=== PATIENT | female | born 1995 | race Caucasian/White ===

== ENCOUNTER 2023-04-01 16:41 | Emergency (ER) | payer BC, MEDICAID, SELFPAY ==
[2023-04-01 16:53] VITALS: BP 152/95; PULSE 96; RESP 18; TEMP 36.6; O2SAT 98; BMI 45.3
[2023-04-01 17:24] LABS: Basophils % 0.6 %; Eosinophils # 0.1 10^3/uL (0.0-0.8); Eosinophils % 1.8 %; Hematocrit 41.5 % (37.0-47.0); Hemoglobin 13.5 g/dL (11.5-15.3); Lymphocytes % 27.8 %; Mean Corpuscular HGB Conc 32.5 g/dL (30.0-36.0); Mean Corpuscular Hemoglobin 27.1 pg (28.0-34.0); Mean Corpuscular Volume 83.3 fl (81-99); Mean Platelet Volume 11.1 fL (7.4-10.4); Monocytes # 0.5 10^3/uL (0.2-0.9); Monocytes % 6.5 %; Neutrophils # 4.45 10^3/uL (1.8-7.7); Neutrophils % 62.9 %; Nucleated Red Blood Cells % 0 %; Platelet Count 253 10^3/cmm (130-400); Red Blood Count 4.98 10^6/uL (4.1-5.3); White Blood Count 7.1 10^3/uL (4.0-10.0)
--- NOTE | 2023-04-01 17:37 | CTR_ITS ---
PROCEDURE INFORMATION: Exam: CT Abdomen And Pelvis With Contrast Exam date and time: 04/01/2023 6:54 PM Age: 27 years old Clinical indication: Nausea and vomiting; Abdominal pain; Localized; Right; Prior surgery; Surgery date: 6+ months; Surgery type: Csection; Patient HX: RT sided abd pain with n/v. ; Additional info: Abd pain, n/v TECHNIQUE: Imaging protocol: Computed tomography of the abdomen and pelvis with contrast. Radiation optimization: All CT scans at this facility use at least one of these dose optimization techniques: automated exposure control; mA and/or kV adjustment per patient size (includes targeted exams where dose is matched to clinical indication); or iterative reconstruction. Contrast material: OMNI 350; Contrast volume: 100 ml; Contrast route: INTRAVENOUS (IV); REPORTING DATA: Count of CT and Cardiac NM exams in prior 12 months: This patient has received 0 known CTs and 0 known cardiac nuclear medicine studies in the 12 months prior to the current study. COMPARISON: No relevant prior studies available. RADIATION DOSE METRICS: Total DLP (mGy-cm): 1085.07 FINDINGS: Liver: Normal. No mass. Gallbladder and bile ducts: Normal. No calcified stones. No ductal dilation. Pancreas: Normal. No ductal dilation. Spleen: Borderline splenomegaly. Adrenal glands: Normal. No mass. Kidneys and ureters: Normal. No hydronephrosis. Stomach and bowel: Unremarkable. No obstruction. No mucosal thickening. Appendix: The appendix is visualized and is normal. Intraperitoneal space: Unremarkable. No free air. No significant fluid collection. Vasculature: Unremarkable. No abdominal aortic aneurysm. Lymph nodes: Unremarkable. No enlarged lymph nodes. Urinary bladder: Unremarkable as visualized. Reproductive: Unremarkable as visualized. Bones/joints: Unremarkable. No acute fracture. Soft tissues: Small fat containing umbilical hernia. CT/CT abdomen pelvis w con* [id number] IMPRESSION: No acute findings.
--- NOTE | 2023-04-01 17:38 | W.ED.ABDPA2 ---
HPI - Abdominal Pain General: Chief Complaint: Abdominal Pain Stated Complaint: abd pain Time Seen by Provider: 04/01/23 17:07 History of Present Illness: Presents to the ER from the clinic in [place] for right-sided abdominal pain. They sent her over here for concerns appendicitis. Pain is dull and achy in nature and sensitive to palpation. Patient also has some nausea vomiting. Patient has never had any pain like this before. Her only abdominal surgery is a multiple years ago. Patient still has her appendix and gallbladder. Review of Systems General: Reports: 10 or more systems reviewed and unremarkable except in HPI and below [facility] Female Reproductive History: Spontaneous abortions: No Physical Exam Const: COMMON NORMALS: no acute distress, average body habitus, patient oriented x3, no limitations, healthy appearing, alert and well nourished HENMT: COMMON NORMALS: normocephalic, atraumatic, hearing grossly normal bilaterally, external ears normal, Normal external nose present and moist oral mucous membranes HEAD & SCALP: normocephalic and atraumatic NOSE: Normal external nose present EXTERNAL EAR: Yes external ears normal Eye: COMMON NORMALS: Equal, round and reactive pupils present, EOMs intact bilaterally, conjunctivae normal and no scleral icterus CONJUNCTIVA: Yes conjunctivae normal PUPIL: Yes Equal, round and reactive pupils present Neck/C-Spine: COMMON NORMALS: full ROM, no lymphadenopathy, supple, no meningeal signs, no JVD and Thyroid normal THYROID: Thyroid normal Lymph: LYMPHATIC: no lymphadenopathy noted Chest: COMMONS NORMALS: normal inspection of the chest and normal palpation of entire chest wall Resp: COMMON NORMALS: normal respiratory effort, No retractions, No use of accessory muscles and clear to auscultation bilaterally AUSCULTATION: clear to auscultation bilaterally Cardio: COMMON NORMALS: no JVD, regular rate, regular rhythm, S1 normal heart sound present, S2 normal heart sound present, No gallops present (Cardio), No murmurs present (Cardio) and No rub (Cardio) RATE: regular rate RHYTHM: regular rhythm HEART SOUNDS: S1 normal heart sound present and S2 normal heart sound present GI: COMMON NORMALS: Normal to inspection, nondistended, normoactive bowel sounds present, Soft to palpation, No hepatosplenomegaly present and no masses; negative for non-tender (Tender to palpate over epigastric/umbilical area.) PALPATION: Yes Soft to palpation and Yes No hepatosplenomegaly present : COMMON NORMALS: Yes no CVA tenderness BLADDER/KIDNEY EXAM: Yes no CVA tenderness Back/Pelvis: COMMON NORMALS: no CVA tenderness Neuro: COMMON NORMALS: patient oriented x3 SENSORIUM/ORIENTATION: Yes alert MENINGEAL SIGNS: Yes no meningeal signs Course Vital Signs: Vital signs: Vital Signs Temperature 97.9 F 04/01/23 16:53 Pulse Rate 96 04/01/23 16:53 Respiratory Rate 18 04/01/23 16:53 Blood Pressure 152/95 04/01/23 16:53 Pulse Oximetry 98 04/01/23 16:53 MDM - Abdominal Pain Medical Decision Making Patient presented to the ER with complaints of abdominal pain. She was seen at the [facility] earlier today and was sent over here to rule out appendicitis. Patient had lab work done which was unremarkable as well as a abdomen pelvis CT with contrast that showed no acute findings. Patient will be discharged with a diagnosis of abdominal pain and instructed to follow-up with her family practice physician. Differential Diagnosis Likely abdominal pain; Unlikely acute appendicitis, calculus of kidney, constipation, diverticulitis, endometriosis, gastroenteritis, pancreatitis or small bowel obstruction Medical Records I reviewed the patient's medical records. Lab Data I reviewed the patient's lab results. 04/01/23 17:18 04/01/23 17:18 Labs/Radiology: Radiology Impressions Abdomen/Pelvis CT 04/01/23 17:37 IMPRESSION: No acute findings. Laboratory Results WBC 7.1 10^3/uL (4.0-10.0) 04/01/23 17:18 RBC 4.98 10^6/uL (4.1-5.3) 04/01/23 17:18 Hgb 13.5 g/dL (11.5-15.3) 04/01/23 17:18 Hct 41.5 % (37.0-47.0) 04/01/23 17:18 MCV 83.3 fl (81-99) 04/01/23 17:18 MCH 27.1 pg (28.0-34.0) L 04/01/23 17:18 MCHC 32.5 g/dL (30.0-36.0) 04/01/23 17:18 RDW 14.0 % (12.1-15.1) 04/01/23 17:18 Plt Count 253 10^3/cmm (130-400) 04/01/23 17:18 MPV 11.1 fL (7.4-10.4) H 04/01/23 17:18 Neut % (Auto) 62.9 % 04/01/23 17:18 Lymph % (Auto) 27.8 % 04/01/23 17:18 [place] % (Auto) 6.5 % 04/01/23 17:18 Eos % (Auto) 1.8 % 04/01/23 17:18 Baso % (Auto) 0.6 % 04/01/23 17:18 Neut # (Auto) 4.45 10^3/uL (1.8-7.7) 04/01/23 17:18 Lymph # (Auto) 2.0 10^3/uL (0.8-4.8) 04/01/23 17:18 [place] # (Auto) 0.5 10^3/uL (0.2-0.9) 04/01/23 17:18 Eos # (Auto) 0.1 10^3/uL (0.0-0.8) 04/01/23 17:18 Baso # (Auto) 0.0 10^3/uL (0.0-0.1) 04/01/23 17:18 Nucleated RBC % (auto) 0 % 04/01/23 17:18 Nucleated RBCs # 0.0 /100WBC 04/01/23 17:18 Sodium 138 mmol/L (136-145) 04/01/23 17:18 Potassium 3.9 mmol/L (3.5-5.1) 04/01/23 17:18 Chloride 104 mmol/L (98-107) 04/01/23 17:18 Carbon Dioxide 23 mmol/L (22-29) 04/01/23 17:18 Anion Gap 14.9 (5-19) 04/01/23 17:18 BUN 9 mg/dL (6-20) 04/01/23 17:18 Creatinine 0.5 mg/dL (0.5-0.9) 04/01/23 17:18 GFR Calculation 150.3 mL/min (90-130) H 04/01/23 17:18 Glucose 95 mg/dL (65-115) 04/01/23 17:18 Calculated Osmolality 284 mOsm/kg (285-295) L 04/01/23 17:18 Calcium 9.5 mg/dL (8.5-10.5) 04/01/23 17:18 Total Bilirubin 0.2 mg/dL (0.15-1.2) 04/01/23 17:18 AST 14 U/L (0-32) 04/01/23 17:18 ALT 20 U/L (0-33) 04/01/23 17:18 Alkaline Phosphatase 63 U/L (35-105) 04/01/23 17:18 Total Protein 7.4 g/dL (6.6-8.7) 04/01/23 17:18 Albumin 4.4 g/dL (3.5-5.2) 04/01/23 17:18 Globulin 3.0 g/dL (1.3-4.6) 04/01/23 17:18 Lipase 18 U/L (13-60) 04/01/23 17:18 HCG, Qual Negative (Negative) 04/01/23 17:58 Urine Color Yellow (Yellow) 04/01/23 17:58 Urine Appearance Clear (CLEAR) 04/01/23 17:58 Urine pH 7 (5-7) 04/01/23 17:58 Ur Specific [place] 1.005 (1.005-1.030) 04/01/23 17:58 Urine Protein Neg (Negative) 04/01/23 17:58 Urine Glucose (UA) Norm (Normal) 04/01/23 17:58 Urine Ketones Negative (Negative) 04/01/23 17:58 Urine Blood Neg (Negative) 04/01/23 17:58 Urine Nitrate Negative (Negative) 04/01/23 17:58 Urine Bilirubin Neg (Negative) 04/01/23 17:58 Urine Urobilinogen Norm mg/dL (Negative) 04/01/23 17:58 Ur Leukocyte Esterase Trace (Negative) H 04/01/23 17:58 Urine RBC 0-4 /hpf (0-2) H 04/01/23 17:58 Urine WBC 0-4 /hpf (0-5) H 04/01/23 17:58 Ur Squamous Epith Cells 0-4 /hpf (0-5) H 04/01/23 17:58 Amorphous Sediment Not Reportable 04/01/23 17:58 Urine Bacteria None /hpf (NONE) 04/01/23 17:58 Discharge Plan Discharge Patient Disposition: Home Clinical Impression: Abdominal pain Qualifiers: Abdominal location: unspecified location Qualified Code(s): R10.9 - Unspecified abdominal pain Condition: Stable Prescriptions: No Action No Known Home Medications Discharge Orders: Discharge ED (Routine); Ordered 04/01/23 Ordered By: Saúl Whalen Patient Instructions: Abdominal Pain (ED) Activity Restrictions/Additional Instructions: Follow-up with your family practice physician in approximately 7 days or sooner as needed for further evaluation and treatment. If your pain worsens please feel free to come back to the ER. Coding Level of Care Code ED Business Functional Analyst for Vicki Fisher
[2023-04-01 17:44] LABS: Alanine Aminotransferase 20 U/L (0-33); Albumin Level 4.4 g/dL (3.5-5.2); Alkaline Phosphatase 63 U/L (35-105); Anion Gap 14.9 (5-19); Aspartate Amino Transferase 14 U/L (0-32); Blood Urea Nitrogen 9 mg/dL (6-20); Calcium 9.5 mg/dL (8.5-10.5); Carbon Dioxide 23 mmol/L (22-29); Chloride 104 mmol/L (98-107); Glomerular Filtration Rate 150.3 mL/min (90-130); Glucose 95 mg/dL (65-115); Lipase 18 U/L (13-60); Osmolality Calculated 284 mOsm/kg (285-295); Potassium 3.9 mmol/L (3.5-5.1); Sodium 138 mmol/L (136-145); Total Bilirubin 0.2 mg/dL (0.15-1.2); Total Protein 7.4 g/dL (6.6-8.7)
[2023-04-01 18:10] LABS: Bilirubin Urine Neg (Negative); Blood Urine Neg (Negative); Glucose Urine UA Norm (Normal); Ketones Urine Negative (Negative); Leukocyte Esterase Urine Trace (Negative); Nitrate Urine Negative (Negative); Protein Urine Neg (Negative); Specific Gravity, Urine 1.005 (1.005-1.030); Urine Appearance Clear (CLEAR); Urine Color Yellow (Yellow); Urobilinogen Urine Norm (Negative); pH Urine 7 (5-7)
[2023-04-01 18:11] LABS: Add Urine Culture? No; Add Urine Microscopic? YES; RBC Urine 0-4 /hpf (0-2); Squamous Epithelial Cell Urine 0-4 /hpf (0-5); WBC Urine 0-4 /hpf (0-5)
[2023-04-01] MEDS: sodium chloride 0.9% 1,000 ML 999 ML IV (18:12)
[2023-04-01] MEDS: ondansetron 2 mg/ML SDV 2 mL 4 MG IVP (18:12)
[2023-04-01 18:36] LABS: HCG Qualitative Urine. Negative (Negative)
[2023-04-01] MEDS: iohexol 350 mg/mL 500 mL Btl (per mL) IV (18:55)
== END 2023-04-01 20:06 | disposition home or self-care (01) ==
PROVIDERS: Emergency Provider Emergency Medicine
DX: R10.9 Unspecified abdominal pain (principal)
CPT/HCPCS: 36415; 74177; 80053; 81001; 81025; 83690; 85025; 96374; 99285; J2405; J7030; Q9967